=== PATIENT | female | born 1985 | race Caucasian/White ===

== ENCOUNTER 2020-09-26 16:46 | Outpatient (CLI) | payer BC, SELFPAY | END 2020-09-26 16:47 | disposition home or self-care (01) | LOC: ANHCOVIDVC 16:46 | PROVIDERS: PCP Obstetrics & Gynecology Gynecology | DX: Z23 Encounter for immunization (principal) | CPT/HCPCS: 0001A; 91300 ==

== ENCOUNTER 2020-10-17 16:49 | Outpatient (CLI) | payer BC, SELFPAY | END 2020-10-17 16:50 | disposition home or self-care (01) | LOC: ANHCOVIDVC 16:49 | PROVIDERS: PCP Obstetrics & Gynecology Gynecology | DX: Z23 Encounter for immunization (principal) | CPT/HCPCS: 0002A; 91300 ==

== ENCOUNTER → 2021-10-04 11:22 | Outpatient (CLI) | payer BC, SELFPAY ==
--- NOTE | ~2021-10-04 | US_ITS ---
EXAMINATION: US pelvic complete EXAM DATE: 10/04/2021 11:39 INDICATION: Menorrhagia. TECHNIQUE: Pelvic transabdominal sonogram was performed. There are multiple grayscale and Doppler i mages available for interpretation. Comparison is made to prior examination from 04/04/2015. FINDINGS: Uterus measures 10.0 x 4.2 x 5.9 cm, and is morphologically normal. Endometrial stripe me asures 9 mm, within normal limits. There is no free pelvic fluid. Right adnexa: The ovary measures 4.3 x 1.9 x 3.2 cm and is morphologically normal. Ovarian vascular f low confirmed. Left adnexa: The ovary measures 2.8 x 1.4 x 2.8 cm and is morphologically normal. Ovarian vascular fl ow confirmed. IMPRESSION: 1. Unremarkable pelvic ultrasound exam. Reviewed, dictated and finalized at location A.
== END ==
PROVIDERS: Visit Provider Obstetrics & Gynecology Gynecology
DX: N92.0 Excessive and frequent menstruation with regular cycle (principal)
CPT/HCPCS: 76856